=== PATIENT | female | born 1960 | race Caucasian/White ===

== ENCOUNTER 2018-03-09 06:50 | Day surgery (SDC) | payer OTHER ==
[2018-03-07 12:41] VITALS: BMI 33.3
[~2018-03-09 06:50] MED LIST: ACETAMINOPHEN 325 MG TABLET (FP) PO PRN
[2018-03-09] MEDS ORDERED: CYCLOPENTOLATE HCL 1% OPHTH SOLN 2 ML BOTTLE ONE (06:55)
[2018-03-09] MEDS ORDERED: OFLOXACIN 0.3% OPHTHALMIC SOLUTION 5 ML BOTTLE ONE (06:55)
[2018-03-09] MEDS ORDERED: KETOROLAC TROMETHAMINE 0.5% EYE DROP 1 DROP DROPS ONE (06:56)
[2018-03-09] MEDS ORDERED: PHENYLEPHRINE 2.5% OPHTH SOLN 15 ML BOTTLE ONE (06:56)
[2018-03-09] MEDS ORDERED: TROPICAMIDE 1% OPHTH SOLN 15 ML BOTTLE ONE (06:56)
[2018-03-09] MEDS: CYCLOPENTOLATE HCL 1% OPHTH SOLN 2 ML BOTTLE OP SCH ×3 (07:05→07:18)
[2018-03-09] MEDS: TROPICAMIDE 1% OPHTH SOLN 15 ML BOTTLE OP SCH ×3 (07:05→07:17)
[2018-03-09] MEDS: OFLOXACIN 0.3% OPHTHALMIC SOLUTION 5 ML BOTTLE OP SCH ×3 (07:05→07:17)
[2018-03-09] MEDS: KETOROLAC TROMETHAMINE 0.5% EYE DROP 1 DROP DROPS OP SCH ×3 (07:05→07:17)
[2018-03-09] MEDS: PHENYLEPHRINE 2.5% OPHTH SOLN 15 ML BOTTLE OP SCH ×3 (07:05→07:17)
[2018-03-09 07:09] VITALS: TEMP 98
[2018-03-09] MEDS ORDERED: VANCOMYCIN 500 MG VIAL (RESTRICTED TO ID ONLY) ONE (07:26)
[2018-03-09] MEDS ORDERED: TRYPAN BLUE 0.5 ML DISP.SYRIN ONE (07:26)
[2018-03-09] MEDS ORDERED: EPINEPHrine/PF 1 MG/1 ML (1:1,000) AMPULE ONE (07:26)
[2018-03-09] MEDS ORDERED: LIDOCAINE HCL/PF 1% SDV 5ML VIAL ONE (07:26)
[2018-03-09] MEDS ORDERED: BSS (NA/CA/MG/K) BALANCED SALT SOLUTION OPHTH SOLN 15 ML BOTTLE ONE (07:26)
[2018-03-09] MEDS ORDERED: TETRACAINE 0.5% OPHTH SOLN 2 ML BOTTLE ONE (07:26)
[2018-03-09] MEDS ORDERED: POVIDONE-IODINE 5% OPHTHALMIC PREP 30 ML SOLUTION ONE (07:27)
[2018-03-09] MEDS ORDERED: WATER FOR INJ,STERILE 10 ML ONE (07:27)
[2018-03-09] MEDS ORDERED: MIDAZOLAM HCL 2 MG/2 ML SINGLE DOSE VIAL ONE (07:43)
[2018-03-09] MEDS ORDERED: LIDOCAINE HCL 1% PRESERVATIVE FREE - 30ML VIAL IO ONE (08:20)
[2018-03-09] MEDS ORDERED: CHONDROITIN SU A/HYALUR SOD 1 KIT IO ONE (08:21)
[2018-03-09] MEDS ORDERED: TRYPAN BLUE 0.5 ML DISP.SYRIN IO ONE (08:22)
[2018-03-09] MEDS ORDERED: EPINEPHrine/PF 1 MG/1 ML (1:1,000) AMPULE IO ONE (08:30)
[2018-03-09 09:11] VITALS: PULSE 67
--- NOTE | 2018-03-09 09:16 | OP ---
DATE OF OPERATION: 03/09/2018 PREOPERATIVE DIAGNOSIS: Cataract, left eye. POSTOPERATIVE DIAGNOSIS: Cataract, left eye. OPERATION: Phacoemulsification of left cataract with capsular staining with Trypan blue and posterior intraocular lens implantation, lens used [id number], 22.5 Diopter power, Serial No. [id number]. SURGEON: Devin Bach M.D. ANESTHESIA: Sub-Tenon/MAC. COMPLICATIONS: None. PROCEDURE: The patient was brought to the operating room and correctly identified along with the operative site as well as correct intraocular lens velarde. She was then prepped and draped in the usual sterile fashion including 5% Betadine solution in the conjunctival sac and an eyelid drape. An eyelid speculum was then placed into the left eye. Immediately the patient was noted to superduct her eye, and despite coaxing the patient to relax both eyes and look at the microscope lights, the patient still would not fixate. This made it difficult to visualize the anterior capsule as well as cataract. The decision was then made to give a sub-Tenons block. A small incision was made in the intranasal conjunctiva, and 3 mL of lidocaine 1% was given as a sub-Tenon block. The patient was still noted to superduct. However, the eye was then positioned centrally. A paracentesis port was created, and 0.5 mL of 1% preservative-free lidocaine was given intracamerally. Beneath an air bubble, the capsule was then stained with Trypan blue and replaced with the remaining 0.5 mL of preservative-free lidocaine. Viscoelastic was injected to inflate the anterior chamber, and a temporal clear corneal would was created. A continuous circular capsulorrhexis was performed. The nucleus was then hydro-dissected with BSS and removed with phacoemulsification. The remaining cortical material was irrigated and aspirated from the eye. Viscoelastic was injected in the anterior chamber to inflate the capsular bag. The lens was injected into the capsular bag. The Viscoelastic was irrigated and aspirated from the eye. The wounds were all stromal hydrated at the end of the procedure. There was no leakage noted from any wound. The intraocular lens was noted to be well centered and covered by the anterior capsular border. Topical vancomycin and a drop of Betadine was given on the eye. The eye was patched and shielded. The patient was discharged from the operating room in stable condition. Fina [id number] MTDHector
[2018-03-09 10:46] VITALS: BP 127/70
== END 2018-03-09 10:15 | disposition home or self-care (01) ==
LOC: JASU-SURG 06:50
PROVIDERS: ATTEND Ophthalmology
PROC: 08RK3JZ Replacement of Left Lens with Synthetic Substitute, Percutaneous Approach (ICD-10-PCS; principal; 2018-03-09 08:00)
DX: H26.9 Unspecified cataract (principal)

== ENCOUNTER 2018-09-14 08:49 | Day surgery (SDC) | payer OTHER | END 2018-09-14 12:21 | disposition home or self-care (01) | LOC: JASU-SURG 08:49 ==